=== PATIENT | male | born 1945 | race Asian ===

== ENCOUNTER 2019-02-27 14:11 | Emergency (ER) | payer OTHER ==
[~2019-02-27] VITALS: Ht 182.9 cm; Wt 95.3 kg
[2019-02-27] MEDS ORDERED: ONDANSETRON HCL 4 MG/2 ML VIAL IV ONE (14:45)
[2019-02-27] MEDS ORDERED: HYDROmorphone HCL 2 MG/ML VL IV ONE (14:45)
[2019-02-27] MEDS ORDERED: SODIUM CHLORIDE 0.9% 500 ML IV ONE (14:45)
[2019-02-27] MEDS ORDERED: ETOMIDATE (2MG/ML) 20ML VIAL IV ONE ×2 (14:45)
[2019-02-27 16:31] VITALS: BP 158/84
== END 2019-02-27 16:47 | disposition home or self-care (01) ==
LOC: ER 14:11
DX: S43.005A Unspecified dislocation of left shoulder joint, initial encounter (principal); E11.9 Type 2 diabetes mellitus without complications; W01.0XXA Fall on same level from slipping, tripping and stumbling without subsequent striking against object, initial encounter; Y93.89 Activity, other specified; Y92.89 Other specified places as the place of occurrence of the external cause; Y99.8 Other external cause status
CPT/HCPCS: 23650; 73020; 73030; 96374; 96375; 99152; 99153; 99285; J1170; J2405; J7030; J7040

== ENCOUNTER 2023-03-14 18:35 | Inpatient (IN) | payer OTHER ==
[~2023-03-14] VITALS: Ht 175.3 cm; Wt 87.9 kg
[2023-03-14 22:15] VITALS: BP 103/61; PULSE 87; RESP 18; TEMP 97.7; O2SAT 95
[2023-03-14] MEDS ORDERED: ACETAMINOPHEN 325 MG TAB PO PRN (22:30)
[2023-03-14] MEDS ORDERED: DEXTROSE (50%) 50ML SYRG IV PRN (22:30)
[2023-03-14] MEDS ORDERED: NITROGLYCERIN 0.4 MG SL TAB SL PRN (22:30)
[2023-03-14] MEDS ORDERED: ONDANSETRON HCL 4 MG/2 ML VIAL IV PRN (22:30)
[2023-03-14] MEDS: SODIUM CHLORIDE 0.9% 1,000 ML IV SCH (22:30)
[2023-03-14] MEDS ORDERED: DOCUSATE SOD 100 MG CAP PO PRN (22:30)
[2023-03-14] MEDS ORDERED: MORPHINE SULFATE INJ 2 MG/ml SYRG IV PRN (22:30)
[2023-03-15] VITALS (7 sets, daily range): BP systolic 140–153; BP diastolic 69–87; PULSE 67–79; RESP 17–20; TEMP 97.6–98.4; O2SAT 96–99
[2023-03-15 01:07] LABS: Hematocrit 33.6 % (41.0-53.0); Hemoglobin 11.5 g/dL (13.5-17.5)
[2023-03-15 05:29] LABS: Basophils # (auto) 0 10 ^3/uL (0-0.2); Basophils % (auto) 0.5 % (0.0-2.0); Eosinophils # (auto) 0.1 10 ^3/uL (0-0.8); Eosinophils % (auto) 1.8 % (0.0-7.0); Hematocrit 32.4 % (41.0-53.0); Lymphocytes # (auto) 2.2 10 ^3/uL (0.4-5.4); Lymphocytes % (auto) 27.1 % (10.0-50.0); Mean Corpuscular Hemoglobin 31.4 pg (28.0-32.0); Mean Corpuscular Hgb Conc. 33.8 g/dL (32.0-36.0); Mean Corpuscular Volume 92.9 fL (80.0-100.0); Monocytes # (auto) 0.8 10 ^3/uL (0-1.3); Monocytes % (auto) 9.6 % (0.0-12.0); Neutrophils # (auto) 4.9 10 ^3/uL (1.6-8.6); Nucleated Red Blood Cells % 0.1 %; Red Blood Cells 3.49 10^6/uL (4.5-5.90); Red Cell Distribution Width 12.7 % (11.8-14.3)
[2023-03-15 05:33] LABS: Chloride 102 mmol/L (98-107); Potassium 3.8 mmol/L (3.5-5.1); Sodium 135 mmol/L (136-145)
[2023-03-15 05:34] LABS: Anion Gap 5 (5-15); Carbon Dioxide 28 mmol/L (20-30)
[2023-03-15 05:39] LABS: BUN/Creatinine Ratio 11.1 (10.0-20.0); Blood Urea Nitrogen 14 mg/dL (9-23); Glucose 139 mg/dL (74-106)
[2023-03-15] MEDS: ACCU-CHEK COMFORT CURVE STRIP VI SCH ×4 (05:59→21:44)
[2023-03-15] MEDS: InsuLIN REG 1unit/0.01ml Soln (100units/ml) SC SCH ×5 (06:00→21:44)
[2023-03-15] MEDS: PANTOPRAZOLE 40 MG/10 ML VIAL INJ IV SCH (09:10)
[2023-03-15] MEDS: SODIUM CHLORIDE 0.9% 1,000 ML IV SCH ×2 (11:50→16:56)
[2023-03-15 11:59] LABS: Hematocrit 31.2 % (41.0-53.0); Hemoglobin 10.6 g/dL (13.5-17.5)
[2023-03-15 18:32] LABS: Hematocrit 30.7 % (41.0-53.0); Hemoglobin 10.4 g/dL (13.5-17.5)
[2023-03-16 05:16] VITALS: BP_SYST 162; BP_SYST 165; BP_DIAS 78; BP_DIAS 85; PULSE 71; PULSE 83; RESP 16; TEMP 98.3; TEMP 99.1; O2SAT 96
[2023-03-16] MEDS: ACCU-CHEK COMFORT CURVE STRIP VI SCH ×4 (06:04→21:19)
[2023-03-16] MEDS: InsuLIN REG 1unit/0.01ml Soln (100units/ml) SC SCH ×4 (06:04→21:19)
[2023-03-16 06:45] LABS: Anion Gap 6 (5-15); Carbon Dioxide 26 mmol/L (20-30); Chloride 104 mmol/L (98-107); Potassium 3.8 mmol/L (3.5-5.1); Sodium 136 mmol/L (136-145)
[2023-03-16 06:46] LABS: Basophils # (auto) 0 10 ^3/uL (0-0.2); Basophils % (auto) 0.3 % (0.0-2.0); Eosinophils # (auto) 0.1 10 ^3/uL (0-0.8); Eosinophils % (auto) 2.4 % (0.0-7.0); Hematocrit 30.3 % (41.0-53.0); Hemoglobin 10.6 g/dL (13.5-17.5); Lymphocytes # (auto) 1.7 10 ^3/uL (0.4-5.4); Lymphocytes % (auto) 34.3 % (10.0-50.0); Mean Corpuscular Hemoglobin 32.4 pg (28.0-32.0); Mean Corpuscular Hgb Conc. 34.9 g/dL (32.0-36.0); Mean Corpuscular Volume 92.8 fL (80.0-100.0); Monocytes # (auto) 0.5 10 ^3/uL (0-1.3); Monocytes % (auto) 9.6 % (0.0-12.0); Neutrophils # (auto) 2.7 10 ^3/uL (1.6-8.6); Neutrophils % (auto) 53.4 % (37.0-80.0); Nucleated Red Blood Cells % 0.1 %; Red Blood Cells 3.26 10^6/uL (4.5-5.90); Red Cell Distribution Width 12.6 % (11.8-14.3)
[2023-03-16 06:47] LABS: Calcium 8.9 mg/dL (8.5-10.1)
[2023-03-16 06:51] LABS: Glucose 155 mg/dL (74-106)
[2023-03-16 06:52] LABS: BUN/Creatinine Ratio 6.2 (10.0-20.0); Blood Urea Nitrogen 7 mg/dL (9-23)
[2023-03-16 06:55] LABS: INR 1.04 (0.9-1.15); Partial Thromboplastin Time 25.6 SEC (24.5-34.5); Prothrombin Time 10.9 sec (9.3-11.8)
[2023-03-16] MEDS ORDERED: ASPI-498 PO (08:09)
[2023-03-16] MEDS ORDERED: EMPA1TAB PO (08:09)
[2023-03-16] MEDS ORDERED: LOSA100T58 PO (08:09)
[2023-03-16] MEDS ORDERED: METF-370 PO (08:09)
[2023-03-16] MEDS ORDERED: CAR3125T PO (08:09)
[2023-03-16] MEDS ORDERED: CAR125T PO (08:13)
[2023-03-16 08:22] VITALS: PULSE 76; RESP 18; O2SAT 98
[2023-03-16 09:00] VITALS: BP 172/86; PULSE 76; RESP 17; TEMP 98.5; O2SAT 96
[2023-03-16] MEDS: LOSARTAN POTASSIUM 50 MG TAB PO SCH (10:03)
[2023-03-16] MEDS: PANTOPRAZOLE 40 MG/10 ML VIAL INJ IV SCH (10:03)
[2023-03-16] MEDS: CARVEDILOL 12.5 MG TAB PO SCH ×2 (10:04→21:21)
[2023-03-16 13:00] VITALS: BP 149/84; PULSE 76; RESP 17; TEMP 98.4; O2SAT 96
[2023-03-16 13:17] LABS: Hematocrit 29.4 % (41.0-53.0); Hemoglobin 10.1 g/dL (13.5-17.5)
[2023-03-16] MEDS: SODIUM CHLORIDE 0.9% 1,000 ML IV SCH (15:38)
[2023-03-16 17:00] VITALS: BP 138/81; PULSE 72; RESP 17; TEMP 98.3; O2SAT 99
[2023-03-16] MEDS ORDERED: CEPH250C PO (17:23)
[2023-03-16] MEDS ORDERED: METR-344 PO (17:23)
[2023-03-16] MEDS: metFORMIN HYDROCHLORIDE 850 MG TAB PO SCH (18:26)
[2023-03-16 22:00] VITALS: BP 141/71; PULSE 72; RESP 17; TEMP 98.3; O2SAT 95
[2023-03-17 05:00] VITALS: BP 166/94; PULSE 71; RESP 17; TEMP 98.2; O2SAT 96
[2023-03-17] MEDS: ACCU-CHEK COMFORT CURVE STRIP VI SCH ×2 (05:49→11:30)
[2023-03-17] MEDS: InsuLIN REG 1unit/0.01ml Soln (100units/ml) SC SCH ×2 (05:49→11:30)
[2023-03-17] MEDS: SODIUM CHLORIDE 0.9% 1,000 ML IV SCH (05:50)
[2023-03-17 07:07] LABS: Basophils # (auto) 0 10 ^3/uL (0-0.2); Basophils % (auto) 0.4 % (0.0-2.0); Eosinophils # (auto) 0.1 10 ^3/uL (0-0.8); Eosinophils % (auto) 1.7 % (0.0-7.0); Hematocrit 30.5 % (41.0-53.0); Hemoglobin 10.3 g/dL (13.5-17.5); Lymphocytes # (auto) 2.1 10 ^3/uL (0.4-5.4); Lymphocytes % (auto) 24.1 % (10.0-50.0); Mean Corpuscular Hemoglobin 31.7 pg (28.0-32.0); Mean Corpuscular Hgb Conc. 33.7 g/dL (32.0-36.0); Mean Corpuscular Volume 94.2 fL (80.0-100.0); Monocytes # (auto) 0.6 10 ^3/uL (0-1.3); Monocytes % (auto) 6.9 % (0.0-12.0); Neutrophils # (auto) 5.8 10 ^3/uL (1.6-8.6); Neutrophils % (auto) 66.9 % (37.0-80.0); Red Blood Cells 3.24 10^6/uL (4.5-5.90); Red Cell Distribution Width 12.8 % (11.8-14.3); White Blood Cell 8.7 10^3/uL (4.4-10.8)
[2023-03-17 07:08] LABS: Calcium 8.9 mg/dL (8.7-10.4); Chloride 104 mmol/L (98-107); Potassium 3.8 mmol/L (3.5-5.1); Sodium 135 mmol/L (136-145)
[2023-03-17 07:09] LABS: Anion Gap 4 (5-15); Carbon Dioxide 27 mmol/L (20-30)
[2023-03-17 07:14] LABS: BUN/Creatinine Ratio 4.9 (10.0-20.0); Blood Urea Nitrogen 6 mg/dL (9-23); Glucose 155 mg/dL (74-106)
[2023-03-17 08:00] VITALS: BP 144/74; PULSE 70; RESP 20; TEMP 97.5; O2SAT 96
[2023-03-17] MEDS: metFORMIN HYDROCHLORIDE 850 MG TAB PO SCH (08:00)
[2023-03-17 08:21] VITALS: PULSE 76; RESP 18; O2SAT 98
[2023-03-17] MEDS: LOSARTAN POTASSIUM 50 MG TAB PO SCH (10:01)
[2023-03-17] MEDS: CARVEDILOL 12.5 MG TAB PO SCH (10:02)
[2023-03-17] MEDS: PANTOPRAZOLE 40 MG/10 ML VIAL INJ IV SCH (10:03)
[2023-03-17 11:51] VITALS: BP 144/74; PULSE 70; TEMP 36.4
[2023-03-17 12:00] VITALS: BP 165/82; PULSE 71; RESP 21; TEMP 98.5; O2SAT 98
== END 2023-03-17 13:13 | disposition home or self-care (01) | DRG 378 ==
LOC: WEST WING 22:07 → UNDOADMIN 22:07 → WEST WING 22:41
PROVIDERS: ADMIT Nurse Practitioner Family; ATTEND Nurse Practitioner Family
DX: K57.31 Diverticulosis of large intestine without perforation or abscess with bleeding (principal); D62 Acute posthemorrhagic anemia; I10 Essential (primary) hypertension; E11.9 Type 2 diabetes mellitus without complications; K80.20 Calculus of gallbladder without cholecystitis without obstruction; K76.9 Liver disease, unspecified; N40.0 Benign prostatic hyperplasia without lower urinary tract symptoms; K76.89 Other specified diseases of liver
CPT/HCPCS: 36415; 76705; 80048; 82962; 85014; 85018; 85025; 85610; 85730; 86850; 86900; 86901; C9113; G0378; J1815; J2405